=== PATIENT | male | born 1995 | race Caucasian/White ===

== ENCOUNTER 2016-06-12 21:06 | Emergency (ER) | payer OTHER ==
[~2016-06-12] VITALS: Ht 172.7 cm; Wt 63.6 kg
[2016-06-12 21:09] VITALS: BP 122/67; TEMP 100.9
[2016-06-12 22:00] VITALS: PULSE 94
== END 2016-06-12 21:58 | disposition home or self-care (01) ==
LOC: COL.ER 21:06
DX: J02.0 Streptococcal pharyngitis (principal); R59.0 Localized enlarged lymph nodes
CPT/HCPCS: J0561